=== PATIENT | male | born 1950 | race Caucasian/White ===

== ENCOUNTER → 2016-11-04 | Outpatient (CLI) | payer MEDICARE ==
[~2016-11-04] MED LIST: ACET-1600 PO; CHOL500050 PO; DEXTROMETHORPHAN PO; ESOM40CA PO; FINA5TAB4 PO; FLUTICASONE NASAL; Fluticasone INH; GABA300C10 PO; GUAI400T26 PO; HYDROCODONE PO; IBUP800T PO; MAG355OR15 PO; ONDA4TAB13 SL; OXYC1TAB7 PO; OXYMETAZOLINE INH; SALINE NAS; TAMS0.4C2 PO; dextromethorphan PO; maalox PO
== END | disposition home or self-care (01) ==
LOC: STAR 10:36
PROVIDERS: ATTEND Dentist
DX: Z01.810 Encounter for preprocedural cardiovascular examination (principal); K02.9 Dental caries, unspecified
CPT/HCPCS: 93005

== ENCOUNTER → 2016-11-14 | Outpatient (CLI) | payer MEDICARE | END | disposition home or self-care (01) | LOC: CVU 11:06 | PROVIDERS: ATTEND Internal Medicine Cardiovascular Disease | DX: Z01.810 Encounter for preprocedural cardiovascular examination (principal); R06.02 Shortness of breath; R07.9 Chest pain, unspecified | CPT/HCPCS: 93306 ==

== ENCOUNTER → 2016-11-26 | Outpatient (CLI) | payer MEDICARE | END | disposition home or self-care (01) | LOC: CFH 08:02 | PROVIDERS: ATTEND Internal Medicine Cardiovascular Disease | DX: Z01.810 Encounter for preprocedural cardiovascular examination (principal); R06.02 Shortness of breath | CPT/HCPCS: 78452; 93017; A9502 ==

== ENCOUNTER → 2016-12-17 | Outpatient (CLI) | payer MEDICARE | END | disposition home or self-care (01) | LOC: STAR 07:57 | PROVIDERS: ATTEND Dentist | DX: Z02.9 Encounter for administrative examinations, unspecified (principal) ==

== ENCOUNTER 2016-12-24 10:43 | Inpatient (IN) | payer MEDICARE ==
[~2016-12-24] VITALS: Ht 180.3 cm; Wt 77.5 kg
[~2016-12-24 10:43] MED LIST changes: +BUPIVACAINE/PF-EPI 0.25% 1:200K ONE; +LIDOCAINE/PF 1%-EPI 1:200K, 30ML ONE
[2016-12-24] MEDS ORDERED: ALUMINUM/MAG/SIMETHICONE 30 ML UDC PO PRN ×2 (11:00→19:30)
[2016-12-24] MEDS ORDERED: SCOPOLAMINE PATCH, 1.5MG PATCH.TD72 TD ONE ×2 (11:02)
[2016-12-24] MEDS ORDERED: LACTATED RINGERS 1,000 ML IV SCH (11:05)
[2016-12-24 11:43] VITALS: BP 166/95
[2016-12-24] MEDS ORDERED: FENTANYL PF 250 MCG/5ML ONE (12:49)
[2016-12-24] MEDS ORDERED: MIDAZOLAM 1 MG/ML, 2ML ONE (12:49)
[2016-12-24] MEDS ORDERED: FAMOTIDINE 20 MG/2 ML ONE ×2 (12:55→13:04)
[2016-12-24] MEDS ORDERED: SODIUM CITRATE/CITRIC ACID 30 ML UDC ONE (12:55)
[2016-12-24] MEDS ORDERED: ONDANSETRON 2MG/ML, 2ML ONE (13:04)
[2016-12-24] MEDS ORDERED: PROPOFOL 10 MG/ML, 50ML ONE (13:04)
[2016-12-24] MEDS ORDERED: EPHEDRINE 50 MG/ML, 1ML ONE (13:04)
[2016-12-24] MEDS ORDERED: CEFAZOLIN 1,000 MG ONE (13:04)
[2016-12-24] MEDS ORDERED: PROPOFOL 10 MG/ML, 20ML ONE (13:04)
[2016-12-24] MEDS ORDERED: DEXAMETHASONE 4 MG/ML, 1ML ONE (13:04)
[2016-12-24] MEDS ORDERED: ACETAMINOPHEN 325 MG TABLET PO PRN ×2 (15:00→20:00)
[2016-12-24] MEDS ORDERED: MIDAZOLAM 1 MG/ML, 2ML IV PRN (15:00)
[2016-12-24] MEDS ORDERED: hydrALAzine 20 MG/ML, 1ML IV PRN (15:00)
[2016-12-24] MEDS ORDERED: PROMETHAZINE 25 MG/ML, 1ML IV PRN (15:00)
[2016-12-24] MEDS ORDERED: FENTANYL PF 100 MCG/2ML IV PRN (15:00)
[2016-12-24] MEDS ORDERED: OXYcodone 5 MG/5 ML ORAL.SOL UDC PO PRN (15:00)
[2016-12-24] MEDS ORDERED: HYDROmorphone 1 MG/ML, 1ML IV PRN (15:00)
[2016-12-24] MEDS ORDERED: LABETALOL 5MG/ML, 20ML IV PRN (15:00)
[2016-12-24] MEDS ORDERED: ONDANSETRON 2MG/ML, 2ML IVPush PRN ×2 (15:00→20:00)
[2016-12-24] MEDS ORDERED: METOCLOPRAMIDE 5 MG/ML, 2ML IV PRN (15:00)
[2016-12-24] MEDS ORDERED: HYDROcodone/APAP 10/325 MG TABLET ONE (16:21)
[2016-12-24] MEDS: HYDROcodone/APAP 10/325 MG TABLET PO PRN (16:25)
[2016-12-24 18:07] LABS: IS PT STATUS REG ER OR PRE ER? NO
[2016-12-24 18:53] LABS: ASPARTATE AMINO TRANSFERASE 22 U/L (15-37); BLOOD UREA NITROGEN 9 mg/dL (7-18)
[2016-12-24] MEDS ORDERED: SALINE NAS SCH (19:30)
[2016-12-24] MEDS ORDERED: FLUTICASONE 50 MG INH SCH (19:30)
[2016-12-24 19:40] VITALS: BP 146/76
[2016-12-24] MEDS ORDERED: BISACODYL 10 MG SUPP PR PRN (20:00)
[2016-12-24] MEDS ORDERED: morphine SULFATE 10 MG/ML, 1ML IVPush PRN (20:00)
[2016-12-24] MEDS ORDERED: NITROGLYCERIN 0.4 MG BOTTLE (25 TABS) SL PRN (20:00)
[2016-12-24] MEDS ORDERED: POLYETHYLENE GLYCOL 17 GM PACKET PO PRN (20:00)
[2016-12-24 22:47] VITALS: BP 146/76
[2016-12-25] MEDS: HYDROcodone/APAP 10/325 MG TABLET PO PRN (00:12)
[2016-12-25 00:15] LABS: IS PT STATUS REG ER OR PRE ER? NO
[2016-12-25] MEDS: FLUTICASONE NASAL SPRAY 16GM NAS SCH ×2 (00:16→07:57)
[2016-12-25 01:44] VITALS: BP 157/81
[2016-12-25 06:31] LABS: IS PT STATUS REG ER OR PRE ER? NO
[2016-12-25 06:45] VITALS: BP 138/84
[2016-12-25] MEDS ORDERED: FINASTERIDE 5 MG TABLET PO SCH (09:00)
[2016-12-25] MEDS ORDERED: TAMSULOSIN 0.4 MG CAP.ER.24H PO SCH (09:00)
[2016-12-25] MEDS ORDERED: GABAPENTIN 300 MG CAPSULE PO SCH (09:00)
[2016-12-25] MEDS ORDERED: SENNA/DOCUSATE TABLET PO SCH (09:00)
[2016-12-25] MEDS ORDERED: FLUTICASONE NASAL SPRAY 16GM NAS SCH (09:00)
[2016-12-25 13:01] VITALS: BP 137/81
[2016-12-25] MEDS ORDERED: AMOX-367 PO (13:30)
[2016-12-25] MEDS ORDERED: HYDR-3307 PO (14:58)
[2016-12-25] MEDS ORDERED: AMOXICILLIN/CLAV 500-125MG TABLET PO SCH (21:00)
== END 2016-12-25 15:58 | disposition home or self-care (01) | DRG 132 ==
LOC: OUT 10:43 → 5SO 18:46 → OUT 19:32 → 5SO 19:32 → DCLOUNGE 12-25 14:55
PROVIDERS: ADMIT Dentist; ATTEND Family Medicine
PROC: 0NQR0ZZ Repair Maxilla, Open Approach (ICD-10-PCS; 2016-12-24)
PROC: 0NQS0ZZ (ICD-10-PCS; 2016-12-24)
PROC: 0CDXXZ0 Extraction of Lower Tooth, Single, External Approach (ICD-10-PCS; 2016-12-24)
PROC: 0CDWXZ1 Extraction of Upper Tooth, Multiple, External Approach (ICD-10-PCS; 2016-12-24)
PROC: 0NQV0ZZ Repair Left Mandible, Open Approach (ICD-10-PCS; principal; 2016-12-24 12:00)
DX: K02.9 Dental caries, unspecified (principal); I25.10 Atherosclerotic heart disease of native coronary artery without angina pectoris; K21.9 Gastro-esophageal reflux disease without esophagitis; N40.0 Benign prostatic hyperplasia without lower urinary tract symptoms; M54.9 Dorsalgia, unspecified; G89.29 Other chronic pain; M19.90 Unspecified osteoarthritis, unspecified site; K40.20 Bilateral inguinal hernia, without obstruction or gangrene, not specified as recurrent; Z87.730 Personal history of (corrected) cleft lip and palate; Z88.2 Allergy status to sulfonamides; Z88.1 Allergy status to other antibiotic agents; Q37.9 Unspecified cleft palate with unilateral cleft lip; Z88.8 Allergy status to other drugs, medicaments and biological substances; Z90.89 Acquired absence of other organs; Z82.49 Family history of ischemic heart disease and other diseases of the circulatory system; Z79.899 Other long term (current) drug therapy
CPT/HCPCS: 36415; 80053; 80061; 83735; 84439; 84443; 84484; 93005; J0690; J1100; J2250; J2405; J2704; J3010; J3490; J7120; S0028

== ENCOUNTER 2020-06-13 08:00 | Outpatient (CLI) | payer MEDICARE ==
[~2020-06-13 08:00] MED LIST changes: +AMOX-367 PO; +ASPI-496 PO; -BUPIVACAINE/PF-EPI 0.25% 1:200K ONE; +FLUT9.9S NAS; -GUAI400T26 PO; +GUAI400T81 PO; +HYDR-3246 PO; +IBUP-1223 PO; -IBUP800T PO; -LIDOCAINE/PF 1%-EPI 1:200K, 30ML ONE; +TRIA15CR61 TP
== END 2020-06-13 23:59 | disposition home or self-care (01) ==
LOC: LAB 08:00 → EDSTATUS 06-15 09:00
PROVIDERS: ATTEND Internal Medicine Gastroenterology
DX: Z20.828 Contact with and (suspected) exposure to other viral communicable diseases (principal)
CPT/HCPCS: 36415; 87635

== ENCOUNTER → 2020-07-20 | Outpatient (CLI) | payer MEDICARE | END | disposition home or self-care (01) | LOC: STAR 14:21 | PROVIDERS: ATTEND Neurological Surgery | DX: Z20.828 Contact with and (suspected) exposure to other viral communicable diseases (principal) | CPT/HCPCS: U0003 ==

== ENCOUNTER 2020-07-24 12:31 | Outpatient (CLI) | payer MEDICARE ==
[~2020-07-24] VITALS: Ht 175.3 cm; Wt 66.7 kg
[~2020-07-24 12:31] MED LIST changes: -HYDR-3246 PO; +HYDR-3248 PO
[2020-07-24] MEDS ORDERED: ALFU10TA PO (13:13)
[2020-07-24] MEDS ORDERED: CHLORHEXIDINE 15 ML UDC ONE (13:22)
[2020-07-24 13:37] VITALS: BP 136/70
[2020-07-24] MEDS ORDERED: SODIUM CHLORIDE 0.9% 1,000 ML IV SCH (14:00)
[2020-07-24] MEDS ORDERED: PROPOFOL 50 ML ONE (14:35)
[2020-07-24] MEDS ORDERED: ONDANSETRON 2MG/ML, 2ML ONE (16:11)
[2020-07-24] MEDS ORDERED: ONDANSETRON 2MG/ML, 2ML IVPush PRN (16:30)
== END 2020-07-24 23:59 | disposition home or self-care (01) ==
LOC: RAD 12:31
PROVIDERS: ATTEND Registered Nurse
DX: M47.26 Other spondylosis with radiculopathy, lumbar region (principal); M41.86 Other forms of scoliosis, lumbar region; M48.062 Spinal stenosis, lumbar region with neurogenic claudication; M25.78 Osteophyte, vertebrae; M48.02 Spinal stenosis, cervical region
CPT/HCPCS: 72050; 72110; 72141; 72148; 93005; J2405; J2704